=== PATIENT | male | born 1985 | race Caucasian/White ===

== ENCOUNTER 2023-02-21 13:52 | Emergency (ER) | payer OTHER ==
[~2023-02-21] VITALS: Ht 180.3 cm; Wt 86.4 kg
[2023-02-21 14:00] VITALS: BP 124/76
== END 2023-02-21 15:09 | disposition home or self-care (01) ==
LOC: EMS 14:00
DX: S60.221A Contusion of right hand, initial encounter (principal); M79.644 Pain in right finger(s); V29.99XA Rider (driver) (passenger) of other motorcycle injured in unspecified traffic accident, initial encounter; Y93.89 Activity, other specified; Y92.89 Other specified places as the place of occurrence of the external cause; Y99.8 Other external cause status
CPT/HCPCS: 99283